=== PATIENT | female | born 1960 | race African-American/Black ===

== ENCOUNTER → 2016-10-23 09:32 | Outpatient (CLI) | payer MEDICARE ==
[2014-07-09 17:20] VITALS: BMI 38.6
[~2016-10-23 09:32] MED LIST: AMITRIPTYLINE150 MG PO; CATAPRES0.1 MG PO; COLACE100 MG PO; DICLOFENAC SODI50 MG PO; HYDROCODON-ACE1 EAC7 PO; HYDROCODONE-APA1 TAB PO; LAMICTAL150 MG PO; MAXZIDE-25 MG T1 TAB PO; MS CONTIN15 MG PO; NEURONTIN 300300 MG PO; PRILOSEC20 MG PO; PRISTIQ100 MG PO; SENNA8.6 MG PO; TRAZODONE HCL150 MG PO; ULTRAM50 MG PO
== END | disposition home or self-care (01) ==
LOC: D.CT 09:32
DX: Z91.81 History of falling (principal)

== ENCOUNTER → 2017-01-14 09:02 | Outpatient (CLI) | payer MEDICARE ==
[2014-07-09 17:20] VITALS: BMI 38.6
== END | disposition home or self-care (01) ==
LOC: D.US 09:02
DX: R22.1 Localized swelling, mass and lump, neck (principal)

== ENCOUNTER 2017-05-11 18:42 | Inpatient (IN) | payer MEDICARE ==
[~2017-05-11] VITALS: Ht 165.1 cm; Wt 100.0 kg
[2017-05-11 19:09] LABS: APPEARANCE CLEAR (CLEAR); BILIRUBIN NEGATIVE (NEGATIVE); COLOR YELLOW (YELLOW); GLUCOSE NEGATIVE (NEGATIVE); KETONE NEGATIVE (NEGATIVE); NITRITE NEGATIVE (NEGATIVE); PROTEIN NEGATIVE (NEGATIVE); UROBILINOGEN NORMAL (NORMAL)
[2017-05-11 19:12] LABS: BACTERIA FEW /hpf (NONE SEEN); EPITHELIAL CELLS 0-5 /hpf (0-5); RED CELLS - URINE 0-5 /hpf (0-5)
[2017-05-11 19:47] LABS: BASOPHILS 0.1 % (0-2); EOSINOPHILS 0.3 % (0-7); HEMATOCRIT 37.7 % (36.0-48.0); HEMOGLOBIN 12.3 g/dL (12-16); IMMATURE GRANULOCYTES 0.3 % (0-5); LYMPHOCYTES 26.6 % (15-50); MCH 28.4 pg (26.0-34.0); MCHC 32.6 g/dL (31.0-37.0); MCV 87.1 fL (80.0-100.0); MEAN PLATELET VOLUME 9.9 fL (7.4-10.4); MONOCYTES 7.6 % (2-11); NEUTROPHILS 65.1 % (40-80); PLATELET COUNT 235 10x3/uL (130-400); RBC 4.33 10x6/uL (4.00-5.40); RDW 14.9 % (11.5-14.5); WBC 11.6 10x3/uL (4.8-10.8)
[2017-05-11 20:22] LABS: ALBUMIN 3.7 g/dL (3.4-5.0); ANION GAP 8.2 mmol/L (8-16); BILIRUBIN - TOTAL 0.34 mg/dL (0.2-1.3); CALCIUM 9.8 mg/dL (8.5-10.1); CARBON DIOXIDE 30.4 mmol/L (21.0-32.0); POTASSIUM - SERUM 3.6 mmol/L (3.5-5.1); PROTEIN - SERUM 7.3 g/dL (6.4-8.2)
[2017-05-11 21:11] LABS: INR 0.96 (0.85-1.17); PROTIME 12.4 SECONDS (11.6-15.0)
[2017-05-11] MEDS ORDERED: INDERAL10 MG PO (22:16)
[2017-05-11] MEDS ORDERED: XALATAN 0.0052.5 ML EACH EYE (22:17)
[2017-05-11] MEDS ORDERED: MELOXICAM PO (22:18)
[2017-05-11] MEDS ORDERED: LEXAPRO10 MG PO (22:20)
[2017-05-11] MEDS ORDERED: ASPIRIN81 MG PO (22:21)
[2017-05-11] MEDS ORDERED: PROTONIX40 MG PO (22:22)
[2017-05-11 22:58] VITALS: BP 149/71
[2017-05-12 01:21] VITALS: BP 149/71
[2017-05-12 05:44] VITALS: BP 154/54
[2017-05-12 05:47] VITALS: BP 149/71; BMI 36.6
[2017-05-12 08:32] VITALS: BP 109/54
[2017-05-12 09:08] VITALS: Ht 165.1 cm; Wt 100.0 kg
[2017-05-12 15:47] LABS: CALCIUM 8.4 mg/dL (8.5-10.1); CARBON DIOXIDE 27.2 mmol/L (21.0-32.0); CHLORIDE - SERUM 103 mmol/L (98-107); GLUCOSE 86 mg/dL (74-106); SODIUM 139 mmol/L (136-145)
[2017-05-12 15:48] LABS: CALC OSMOLALITY 275 mosm/kg (275-300); CREATININE - SERUM 0.7 mg/dL (0.6-1.3); POTASSIUM - SERUM 4.2 mmol/L (3.5-5.1); UREA NITROGEN 10 mg/dL (7-18); eGFR NON AFRICAN AMERICAN > 90 mL/min (90-120)
[2017-05-12 23:07] VITALS: BP 108/83
[2017-05-13 05:06] VITALS: BP 140/63
[2017-05-13 05:25] LABS: BASOPHILS 0.2 % (0-2); EOSINOPHILS 0.4 % (0-7); HEMATOCRIT 41.6 % (36.0-48.0); HEMOGLOBIN 13.4 g/dL (12-16); IMMATURE GRANULOCYTES 0.5 % (0-5); LYMPHOCYTES 8.3 % (15-50); MCH 28.5 pg (26.0-34.0); MCHC 32.2 g/dL (31.0-37.0); MCV 88.5 fL (80.0-100.0); MEAN PLATELET VOLUME 10.7 fL (7.4-10.4); MONOCYTES 5.1 % (2-11); NEUTROPHILS 85.5 % (40-80); PLATELET COUNT 230 10x3/uL (130-400); RDW 15.3 % (11.5-14.5)
[2017-05-13 05:41] LABS: ANION GAP 17.9 mmol/L (8-16); CALCIUM 8.7 mg/dL (8.5-10.1); CARBON DIOXIDE 24.6 mmol/L (21.0-32.0); POTASSIUM - SERUM 4.5 mmol/L (3.5-5.1)
[2017-05-13 08:11] VITALS: BP 107/57
[2017-05-13] MEDS ORDERED: LEVAQUIN500 MG PO (10:27)
[2017-05-13] MEDS ORDERED: HYDROCODON-ACE1 EAC7 PO (10:28)
[2017-05-13 12:21] VITALS: BP 117/63
[2017-05-23 16:14] LABS: AEROBE ID Final report (()); RESULT 1 Aeromonas veronii (())
== END 2017-05-13 14:15 | disposition home or self-care (01) | DRG 340 ==
LOC: D.ER 18:42 → D.EDHOLD 20:54 → D.MS 20:54
PROVIDERS: Emergency Medicine; Family Medicine; Surgery
PROC: 0DTJ4ZZ Resection of Appendix, Percutaneous Endoscopic Approach (ICD-10-PCS; principal; 2017-05-12 09:00)
DX: K35.3 Acute appendicitis with localized peritonitis (principal); I10 Essential (primary) hypertension

== ENCOUNTER → 2017-05-23 12:48 | Outpatient (CLI) | payer MEDICARE ==
[2017-05-12 09:08] VITALS: BMI 38.6
[~2017-05-23 12:48] MED LIST changes: +ASPIRIN81 MG PO; +BACTRIM DS TABL1 TAB PO; +INDERAL10 MG PO; +LEVAQUIN500 MG PO; +LEXAPRO10 MG PO; +MELOXICAM PO; +PROTONIX40 MG PO; +XALATAN 0.0052.5 ML EACH EYE; +ZOFRAN ODT4 MG/UDTAB PO
== END | disposition home or self-care (01) ==
LOC: D.LABREF 12:48
DX: L02.211 Cutaneous abscess of abdominal wall (principal)

== ENCOUNTER 2017-06-01 19:38 | Inpatient (IN) | payer MEDICARE ==
[~2017-06-01] VITALS: Ht 165.1 cm; Wt 91.6 kg
--- NOTE | ~2017-06-01 | OP ---
PATIENT NAME: MIKE LUGO MEDICAL RECORD: [id number] :64 LOCATION:D.[id number] ADMISSION DATE:06/01/17 SURGEON: BERNADETTE JEFF MD DATE OF OPERATION: 06/03/2017 SURGEON: Bernadette Jeff MD PREOPERATIVE DIAGNOSES: 1. Intraabdominal abscess. 2. Small bowel perforation. POSTOPERATIVE DIAGNOSES: 1. Intraabdominal abscess. 2. Small bowel perforation. PROCEDURE PERFORMED: 1. Diagnostic laparoscopy, laparoscopic drainage of intra-abdominal abscess. 2. Exploratory laparotomy. 3. Small bowel resection. ANESTHESIA: General. COMPLICATIONS: None. SPECIMENS: Small bowel resection. Case was grossly contaminated. ESTIMATED BLOOD LOSS: 100 cc. OPERATIVE COURSE: After consent was obtained, the patient was taken to the operating room and placed in the supine position on the operating table. Next, general anesthesia was given via endotracheal intubation after a timeout was performed to confirm the correct patient and procedure. The abdomen was then prepped and draped in typical sterile fashion. Local anesthetic was injected just above the umbilicus. A stab incision was made with 11-blade scalpel. Using a 5-mm bladeless optical trocar, the abdomen was entered under direct laparoscopic vision. Adequate pneumoperitoneum was achieved. The abdominal cavity was inspected. No evidence of bowel injury. No evidence of bleeding. There were filmy adhesions noted throughout the abdominal wall. A second 5-mm trocar placed in left lateral quadrant. Laparoscopic lysis of adhesions was performed with Metzenbaum scissor dissection until the abdominal wall was clear of adhesions. A third 5-mm trocar was then placed in the suprapubic position. There was an abscess noted at the vaginal cuff at the rectosigmoid junction as well as in the right lower quadrant at the previous appendectomy site. At this time, tedious dissection was done arthroscopically to mobilize the cecum and terminal ileum. There were 2 abscess pockets encountered within the pelvic side wall. Laparoscopic lysis of adhesions was performed to allow for small bowel mobilization. The small bowel was run from the ligament of Treitz to the ileocecal valve. There was a loop of distal terminal ileum that was densely adherent to the pelvic side wall and could not be freed laparoscopically. The abscess cavity along the pelvic side wall was copiously irrigated and suctioned. The small bowel was run a second time from the terminal ileum to ligament of Treitz with no evidence of boundary, no evidence of perforation, no evidence of bleeding. The pelvis was copiously suctioned and irrigated. The abscess cavity OPERATIVE REPORT [id number] MIKE LUGO was opened between the rectosigmoid junction. The vaginal cuff was copiously irrigated and suctioned. At this time, a right lower quadrant incision was made. Skin was incised with a 15 blade scalpel. Dissection continued to the level of the external oblique fascia. The fascia was incised with electrocautery and Marty retractor was placed. The terminal ileum was extracorporealized. The loop of distal ileum that was unable to be mobilized laparoscopically was bluntly dissected of the pelvic side wall. Once that portion of terminal ileum was exposed, there was a perforation within the small bowel noted consistent with the CT findings of contrast extravasation in the right lower quadrant. At this time, a small bowel resection was performed using the NELLA linear cutting staplers with green load staplers. The small bowel resection specimen was sent for permanent pathology. The staple line was imbricated using 3-0 Vicryl suture. The small bowel was placed back into the abdominal cavity. The Marty retractor was tied off. The abdomen was reinsufflated at this time. Again, laparoscopic intra-abdominal lavage was performed with approximately 3 liters of saline. Two TREVON drains were placed. A TREVON drain was placed into the pelvis anterior to the rectosigmoid junction and posterior to the vagina. A second drain was placed along the right pericolic gutter. The drain tubes were brought out through the 5-mm trocar site. They were secured with 2-0 nylon suture. The Marty retractor was then removed. The fascia was closed with #1 looped PDS. The subcutaneous tissue was copiously irrigated and suctioned. The skin was loosely reapproximated using manuel. At the end of the case, all needle and counts were correct. No complications occurred. The patient was extubated and transferred to the PACU in stable condition. TRANSINT:[id number] Voice Confirmation ID: [id number] DOCUMENT ID: [id number] BERNADETTE JEFF MD at 1506 CC: [id number] DICTATION DATE: 06/03/17 1348 OUTSOLE TACKER: 06/03/17 1446 ADM IN [facility] [address] [place] [address]
[~2017-06-01 19:38] MED LIST changes: -BACTRIM DS TABL1 TAB PO; -ZOFRAN ODT4 MG/UDTAB PO
[2017-06-01 21:33] LABS: BASOPHILS 0.1 % (0-2); EOSINOPHILS 0.5 % (0-7); HEMOGLOBIN 9.7 g/dL (12-16); IMMATURE GRANULOCYTES 1.8 % (0-5); LYMPHOCYTES 18.7 % (15-50); MCH 27.5 pg (26.0-34.0); MCHC 32.3 g/dL (31.0-37.0); MONOCYTES 8.8 % (2-11); NEUTROPHILS 70.1 % (40-80); PLATELET COUNT 268 10x3/uL (130-400); RBC 3.53 10x6/uL (4.00-5.40); RDW 16.2 % (11.5-14.5); WBC 14.8 10x3/uL (4.8-10.8)
[2017-06-01 21:34] LABS: APPEARANCE CLEAR (CLEAR); COLOR YELLOW (YELLOW); NITRITE NEGATIVE (NEGATIVE); SPECIFIC GRAVITY 1.015 (1.005-1.020)
[2017-06-01 21:35] LABS: BILIRUBIN NEGATIVE (NEGATIVE); GLUCOSE NEGATIVE (NEGATIVE); KETONE NEGATIVE (NEGATIVE); PROTEIN NEGATIVE (NEGATIVE); UROBILINOGEN NORMAL (NORMAL)
[2017-06-01 21:56] LABS: ALBUMIN 2.6 g/dL (3.4-5.0); ANION GAP 15.5 mmol/L (8-16); BILIRUBIN - TOTAL 0.2 mg/dL (0.2-1.3); CALCIUM 9.6 mg/dL (8.5-10.1); CARBON DIOXIDE 25.7 mmol/L (21.0-32.0); CREATININE - SERUM 0.9 mg/dL (0.6-1.3); POTASSIUM - SERUM 5.2 mmol/L (3.5-5.1); PROTEIN - SERUM 6.8 g/dL (6.4-8.2)
[2017-06-02 01:16] VITALS: BP 154/78; BMI 33.6
[2017-06-02 04:00] VITALS: BP 136/76
[2017-06-02 07:07] LABS: BASOPHILS 0.3 % (0-2); EOSINOPHILS 0.7 % (0-7); HEMATOCRIT 28.4 % (36.0-48.0); HEMOGLOBIN 9.1 g/dL (12-16); IMMATURE GRANULOCYTES 1.9 % (0-5); LYMPHOCYTES 24.7 % (15-50); MCV 84.3 fL (80.0-100.0); MEAN PLATELET VOLUME 8.2 fL (7.4-10.4); NEUTROPHILS 64.4 % (40-80); RBC 3.37 10x6/uL (4.00-5.40); RDW 15.8 % (11.5-14.5)
[2017-06-02 07:08] LABS: PLATELET COUNT 508 10x3/uL (130-400); WBC 10.8 10x3/uL (4.8-10.8)
[2017-06-02 07:15] LABS: ANION GAP 13.1 mmol/L (8-16); CALCIUM 8.7 mg/dL (8.5-10.1); CARBON DIOXIDE 27.6 mmol/L (21.0-32.0)
[2017-06-02 07:34] LABS: POTASSIUM - SERUM 3.7 mmol/L (3.5-5.1)
[2017-06-02 07:57] LABS: APTT 28.8 SECONDS (22.8-39.4); INR 1.1 (0.85-1.17); PROTIME 13.8 SECONDS (11.6-15.0)
[2017-06-02 08:37] VITALS: BP 120/59
[2017-06-02 11:39] VITALS: BP 127/50
[2017-06-02 15:40] VITALS: BP 129/66
[2017-06-02 20:41] VITALS: BP 118/50
[2017-06-03 00:45] VITALS: BP 134/76
[2017-06-03 00:50] VITALS: BP 155/78
[2017-06-03 04:30] VITALS: BP 119/64
[2017-06-03 07:44] LABS: BASOPHILS 0.2 % (0-2); EOSINOPHILS 0.8 % (0-7); HEMATOCRIT 30.5 % (36.0-48.0); HEMOGLOBIN 9.7 g/dL (12-16); IMMATURE GRANULOCYTES 2.5 % (0-5); LYMPHOCYTES 22.2 % (15-50); MCH 27.2 pg (26.0-34.0); MCHC 31.8 g/dL (31.0-37.0); MCV 85.4 fL (80.0-100.0); MEAN PLATELET VOLUME 8.3 fL (7.4-10.4); MONOCYTES 7.4 % (2-11); NEUTROPHILS 66.9 % (40-80); PLATELET COUNT 517 10x3/uL (130-400); RBC 3.57 10x6/uL (4.00-5.40); RDW 16.3 % (11.5-14.5); WBC 9.5 10x3/uL (4.8-10.8)
[2017-06-03 07:58] LABS: APTT 28.1 SECONDS (22.8-39.4); INR 1.19 (0.85-1.17); PROTIME 14.6 SECONDS (11.6-15.0)
[2017-06-03 07:59] LABS: ALBUMIN 2.1 g/dL (3.4-5.0); ANION GAP 12.4 mmol/L (8-16); BILIRUBIN - TOTAL 0.1 mg/dL (0.2-1.3); CALCIUM 8.6 mg/dL (8.5-10.1); CARBON DIOXIDE 27.2 mmol/L (21.0-32.0); CREATININE - SERUM 0.9 mg/dL (0.6-1.3); MAGNESIUM - SERUM 2.1 mg/dL (1.8-2.4); PHOSPHOROUS 3.7 mg/dL (2.5-4.9); POTASSIUM - SERUM 3.6 mmol/L (3.5-5.1); PROTEIN - SERUM 6.5 g/dL (6.4-8.2)
[2017-06-03 08:38] VITALS: BP 134/86
[2017-06-03 14:42] VITALS: Ht 165.1 cm; Wt 91.6 kg
[2017-06-03 15:05] VITALS: BP 122/63
[2017-06-03 21:29] VITALS: BP 144/61
[2017-06-04 00:44] VITALS: BP 151/66
[2017-06-04 04:00] VITALS: BP 109/58
[2017-06-04 04:35] LABS: BASOPHILS 0.1 % (0-2); EOSINOPHILS 0.1 % (0-7); HEMATOCRIT 33.2 % (36.0-48.0); HEMOGLOBIN 10.4 g/dL (12-16); LYMPHOCYTES 8.8 % (15-50); MCH 26.9 pg (26.0-34.0); MCHC 31.3 g/dL (31.0-37.0); MCV 85.8 fL (80.0-100.0); MEAN PLATELET VOLUME 8.7 fL (7.4-10.4); MONOCYTES 5.1 % (2-11); NEUTROPHILS 84.9 % (40-80); PLATELET COUNT 510 10x3/uL (130-400); RBC 3.87 10x6/uL (4.00-5.40); RDW 16.5 % (11.5-14.5)
[2017-06-04 04:38] LABS: WBC 18.6 10x3/uL (4.8-10.8)
[2017-06-04 04:52] LABS: CALC OSMOLALITY 288 mosm/kg (275-300); CALCIUM 8.2 mg/dL (8.5-10.1); CARBON DIOXIDE 26.8 mmol/L (21.0-32.0); CHLORIDE - SERUM 109 mmol/L (98-107); CREATININE - SERUM 0.8 mg/dL (0.6-1.3); GLUCOSE 130 mg/dL (74-106); MAGNESIUM - SERUM 1.9 mg/dL (1.8-2.4); POTASSIUM - SERUM 3.5 mmol/L (3.5-5.1); SODIUM 145 mmol/L (136-145); UREA NITROGEN 8 mg/dL (7-18); eGFR NON AFRICAN AMERICAN 79 mL/min (90-120)
[2017-06-04 08:46] VITALS: BP 144/68
[2017-06-04 12:05] VITALS: BP 134/71
[2017-06-04 16:52] VITALS: BP 121/64
[2017-06-04 22:21] VITALS: BP 124/65
[2017-06-05 01:10] VITALS: BP 124/78
[2017-06-05 07:52] VITALS: BP 118/58
[2017-06-05 08:23] LABS: BASOPHILS 0.1 % (0-2); EOSINOPHILS 0.6 % (0-7); HEMATOCRIT 30.5 % (36.0-48.0); HEMOGLOBIN 9.2 g/dL (12-16); IMMATURE GRANULOCYTES 1.1 % (0-5); LYMPHOCYTES 10.1 % (15-50); MCH 26.8 pg (26.0-34.0); MCHC 30.2 g/dL (31.0-37.0); MEAN PLATELET VOLUME 8.8 fL (7.4-10.4); MONOCYTES 6.1 % (2-11); PLATELET COUNT 541 10x3/uL (130-400); RBC 3.43 10x6/uL (4.00-5.40); RDW 17.1 % (11.5-14.5); WBC 18.6 10x3/uL (4.8-10.8)
[2017-06-05 08:31] LABS: ANION GAP 11.5 mmol/L (8-16); CALCIUM 8.5 mg/dL (8.5-10.1); CARBON DIOXIDE 27.7 mmol/L (21.0-32.0); POTASSIUM - SERUM 3.2 mmol/L (3.5-5.1)
[2017-06-05 08:37] LABS: MCV 88.9 fL (80.0-100.0)
[2017-06-05 12:20] VITALS: BP 142/59
[2017-06-05 15:54] VITALS: BP 140/52
[2017-06-06 05:40] LABS: BASOPHILS 0.1 % (0-2); EOSINOPHILS 1.6 % (0-7); HEMATOCRIT 27.5 % (36.0-48.0); HEMOGLOBIN 8.4 g/dL (12-16); IMMATURE GRANULOCYTES 0.8 % (0-5); LYMPHOCYTES 12.8 % (15-50); MCH 26.8 pg (26.0-34.0); MCHC 30.5 g/dL (31.0-37.0); MCV 87.6 fL (80.0-100.0); MEAN PLATELET VOLUME 8.8 fL (7.4-10.4); MONOCYTES 5.9 % (2-11); NEUTROPHILS 78.8 % (40-80); PLATELET COUNT 477 10x3/uL (130-400); RBC 3.14 10x6/uL (4.00-5.40); RDW 17.1 % (11.5-14.5); WBC 15.9 10x3/uL (4.8-10.8)
[2017-06-06 05:59] LABS: CALC OSMOLALITY 290 mosm/kg (275-300); CALCIUM 8.4 mg/dL (8.5-10.1); CARBON DIOXIDE 24.7 mmol/L (21.0-32.0); CHLORIDE - SERUM 111 mmol/L (98-107); CREATININE - SERUM 0.8 mg/dL (0.6-1.3); GLUCOSE 83 mg/dL (74-106); MAGNESIUM - SERUM 1.7 mg/dL (1.8-2.4); POTASSIUM - SERUM 3.1 mmol/L (3.5-5.1); SODIUM 148 mmol/L (136-145); UREA NITROGEN 8 mg/dL (7-18); eGFR NON AFRICAN AMERICAN 79 mL/min (90-120)
[2017-06-06 06:20] VITALS: BP 148/68
[2017-06-06 08:10] VITALS: BP 116/49
[2017-06-06 12:49] VITALS: BP 145/57
[2017-06-06 15:55] VITALS: BP 133/63
[2017-06-06 20:46] VITALS: BP 180/53
[2017-06-07 01:30] VITALS: BP 160/77
[2017-06-07 04:49] VITALS: BP 130/56
[2017-06-07 06:25] LABS: BASOPHILS 0.1 % (0-2); EOSINOPHILS 2.6 % (0-7); HEMATOCRIT 28.2 % (36.0-48.0); HEMOGLOBIN 8.8 g/dL (12-16); IMMATURE GRANULOCYTES 0.9 % (0-5); LYMPHOCYTES 21.1 % (15-50); MCH 26.4 pg (26.0-34.0); MCHC 31.2 g/dL (31.0-37.0); MEAN PLATELET VOLUME 8.7 fL (7.4-10.4); MONOCYTES 5.8 % (2-11); NEUTROPHILS 69.5 % (40-80); PLATELET COUNT 533 10x3/uL (130-400); RBC 3.33 10x6/uL (4.00-5.40); RDW 16.8 % (11.5-14.5)
[2017-06-07 06:26] LABS: MCV 84.7 fL (80.0-100.0); WBC 11.3 10x3/uL (4.8-10.8)
[2017-06-07 06:35] LABS: CALC OSMOLALITY 286 mosm/kg (275-300); CARBON DIOXIDE 27.8 mmol/L (21.0-32.0); CHLORIDE - SERUM 106 mmol/L (98-107); CREATININE - SERUM 0.7 mg/dL (0.6-1.3); GLUCOSE 103 mg/dL (74-106); POTASSIUM - SERUM 3.3 mmol/L (3.5-5.1); SODIUM 145 mmol/L (136-145); UREA NITROGEN 7 mg/dL (7-18); eGFR NON AFRICAN AMERICAN > 90 mL/min (90-120)
[2017-06-07 08:25] VITALS: BP 124/60
[2017-06-07 12:38] VITALS: BP 144/61
[2017-06-07 20:16] VITALS: BP 140/81
[2017-06-07 23:49] VITALS: BP 108/51
[2017-06-08 04:20] VITALS: BP 139/86
[2017-06-08] MEDS ORDERED: LEVAQUIN500 MG PO (06:16)
[2017-06-08] MEDS ORDERED: HYDROCODONE-APA1 TAB PO (06:18)
[2017-06-08] MEDS ORDERED: ZOFRAN ODT4 MG/UDTAB PO (06:22)
[2017-06-08 08:00] VITALS: BP 143/69
[2017-06-08 11:59] VITALS: BP 138/71
[2017-06-08 14:48] LABS: BASOPHILS 0.3 % (0-2); IMMATURE GRANULOCYTES 1.6 % (0-5); MCH 26.8 pg (26.0-34.0); MCHC 32.1 g/dL (31.0-37.0); MCV 83.3 fL (80.0-100.0); MEAN PLATELET VOLUME 9.2 fL (7.4-10.4); MONOCYTES 7.6 % (2-11); NEUTROPHILS 66.5 % (40-80); RBC 3.36 10x6/uL (4.00-5.40); RDW 16.6 % (11.5-14.5); WBC 10.7 10x3/uL (4.8-10.8)
[2017-06-08 14:51] LABS: PLATELET COUNT 401 10x3/uL (130-400)
[2017-06-08 15:05] LABS: CALC OSMOLALITY 282 mosm/kg (275-300); CALCIUM 8.3 mg/dL (8.5-10.1); CARBON DIOXIDE 28.4 mmol/L (21.0-32.0); CHLORIDE - SERUM 105 mmol/L (98-107); CREATININE - SERUM 0.7 mg/dL (0.6-1.3); GLUCOSE 102 mg/dL (74-106); POTASSIUM - SERUM 3.7 mmol/L (3.5-5.1); SODIUM 143 mmol/L (136-145); UREA NITROGEN 6 mg/dL (7-18); eGFR NON AFRICAN AMERICAN > 90 mL/min (90-120)
[2017-06-08 16:03] LABS: MAGNESIUM - SERUM 2.6 mg/dL (1.8-2.4)
[2017-06-08 16:16] VITALS: BP 144/53
[2017-06-08 18:07] LABS: AEROBE ID Final report (())
[2017-06-08 20:00] VITALS: BP 138/68
[2017-06-09] VITALS: BP 120/51
[2017-06-09 04:00] VITALS: BP 130/59
[2017-06-09 08:16] VITALS: BP 146/73
[2017-06-09] MEDS ORDERED: BACTRIM DS TABL1 TAB PO (10:21)
[2017-06-09 11:47] VITALS: BP 132/61
== END 2017-06-09 15:01 | disposition home or self-care (01) | DRG 856 ==
LOC: D.ER 19:38 → D.EDHOLD 23:47 → D.MS 23:47
PROVIDERS: Emergency Medicine; Nurse Practitioner Family; Surgery
PROC: 0DBB4ZZ Excision of Ileum, Percutaneous Endoscopic Approach (ICD-10-PCS; principal; 2017-06-03 09:30)
DX: T81.4XXA Infection following a procedure, initial encounter (principal); K65.1 Peritoneal abscess; K63.2 Fistula of intestine; N89.8 Other specified noninflammatory disorders of vagina; F31.9 Bipolar disorder, unspecified

== ENCOUNTER → 2017-06-13 16:42 | Outpatient (CLI) | payer MEDICARE ==
[2017-06-03 14:42] VITALS: BMI 33.6
[~2017-06-13 16:42] MED LIST changes: +BACTRIM DS TABL1 TAB PO; +ZOFRAN ODT4 MG/UDTAB PO
== END | disposition home or self-care (01) ==
LOC: D.RAD 16:30
DX: R10.9 Unspecified abdominal pain (principal); R19.4 Change in bowel habit

== ENCOUNTER 2018-05-01 09:40 | Day surgery (SDC) | payer MEDICARE ==
[2018-04-30 09:26] LABS: ANION GAP 9.8 mmol/L (8-16); CARBON DIOXIDE 31.8 mmol/L (21.0-32.0); CREATININE - SERUM 0.9 mg/dL (0.6-1.3); POTASSIUM - SERUM 3.6 mmol/L (3.5-5.1)
[2018-04-30 09:32] LABS: HEMATOCRIT 43.1 % (36.0-48.0); HEMOGLOBIN 14.4 g/dL (12-16); MCH 31.4 pg (26.0-34.0); MCHC 33.4 g/dL (31.0-37.0); MCV 93.9 fL (80.0-100.0); MEAN PLATELET VOLUME 9.7 fL (7.4-10.4); RBC 4.59 10x6/uL (4.00-5.40); RDW 15.3 % (11.5-14.5); WBC 8.5 10x3/uL (4.8-10.8)
[~2018-05-01] VITALS: Ht 165.1 cm; Wt 95.5 kg
--- NOTE | ~2018-05-01 | OP ---
PATIENT NAME: MIKE LUGO MEDICAL RECORD: [id number] :64 LOCATION:D[facility] ADMISSION DATE: SURGEON: ADOLFO ISSA DATE OF OPERATION: 05/01/2018 SURGEON: Adolfo Issa DPM PREOPERATIVE DIAGNOSIS: Hallux abductovalgus, left foot. POSTOPERATIVE DIAGNOSIS: Hallux abductovalgus, left foot. PROCEDURE: Alejandro bunionectomy, left foot. ANESTHESIA: Local with monitored anesthesia care. HEMOSTASIS: Pneumatic ankle tourniquet inflated to 250 mmHg. ESTIMATED BLOOD LOSS: Minimal. MATERIALS: One 2.5 mm [employer] headless Dart-Fire screw. INJECTABLES: 20 cc of 0.25% Marcaine plain. The patient has longstanding history of pain associated with left foot bunion. She has tried wider shoes to no avail. We discussed the proposed procedure, risks and benefits were reviewed. Complications were discussed. All questions were answered. She was appropriately consented for the above-mentioned procedure. The patient was brought in the operating room and placed on the operating table in supine position. A timeout was called with Dr. Issa, who identified the patient, the surgical site, and the surgery to be performed. Once appropriate anesthesia was obtained, the foot was prepped and draped in the usual aseptic manner. The pneumatic ankle tourniquet was inflated to 250 mmHg around the well-padded left ankle. Attention was directed to the dorsal aspect of the first metatarsophalangeal joint where a 6 cm curvilinear incision was made just medial to the extensor hallucis longus tendon. This incision was carried deep to soft tissue with care being taken to retract all vital neurovascular structures. All bleeders were cauterized along the way. Through this incision, the first intermetatarsal space was entered utilizing both sharp and blunt dissection, the conjoined tendon of the adductor hallucis muscle was noted at the base of the proximal phalanx and it was sharply transected at this level. Attention was then directed further proximally to the level of the fibular sesamoidal ligament. This too was sharply transected. Attention was then redirected to the dorsal aspect of the first metatarsophalangeal joint where the periosteum was reflected from the head of the first metatarsal and the base of the proximal phalanx, thus exposing the first metatarsophalangeal joint. The head of the first metatarsal was noted to be hypertrophied. Utilizing a sagittal saw, the hypertrophied medial eminence was removed. Next, a V-shaped osteotomy was created in the head of the first metatarsal. This was a through and through osteotomy with the apex oriented distally. The capital fragment was shifted laterally and impacted upon OPERATIVE REPORT [id number] MIKE LUGO the first metatarsal shaft. Next, utilizing manufacture's recommended technique, one 2.5-mm screw was placed across the osteotomy. Excellent compression was noted with use of the screw. All remaining over hanging bone from the medial aspect of the first metatarsal shaft was resected with the sagittal saw. All remaining bone edges were smoothed with a rasp. The surgical site was then irrigated with copious amounts of normal sterile saline via bulb syringe. The periosteum was reapproximated and coapted using 3-0 Vicryl. The subQ was reapproximated and coapted using 3-0 Vicryl. The skin was reapproximated and coapted using 4-0 nylon. A dressing consisting of Xeroform, 4 x 4's, Kerlix, and a Coban was applied to the left foot. The pneumatic ankle tourniquet was deflated and cap refill time is immediate to all digits of the left foot. The patient tolerated the procedure and anesthesia well. She left the operating with vital signs stable and capillary refill time intact. The patient was discharged home with instructions to ice and elevate the left foot. She was dispensed a postop shoe and she also has a boot to further offload the foot. She was dispensed my cell phone number for any afterhours difficulties. She was offered also provided with prescriptions for [place] 5.0/325 and ibuprofen 800 mg. There were no complications with this procedure. We will follow up with her in the office next week. TRANSINT:[id number] Voice Confirmation ID: [id number] DOCUMENT ID: [id number] ADOLFO ISSA CC: [id number] DICTATION DATE: 05/01/18 1418 CORRECTIONS SERGEANT: 05/01/18 1846 [facility] 05/01/18 [id number] [place] [address]
[~2018-05-01 09:40] MED LIST changes: +RESTORIL15 MG PO
[2018-05-01 11:11] VITALS: Ht 165.1 cm; Wt 95.5 kg
== END 2018-05-01 15:25 | disposition home or self-care (01) ==
LOC: D.OPS 09:40 → D.PAN 12:00 → D.OPS 12:00
PROVIDERS: Anesthesiology; ATTEND Podiatrist
DX: M20.12 Hallux valgus (acquired), left foot (principal); Z01.812 Encounter for preprocedural laboratory examination

== ENCOUNTER 2018-09-26 08:00 | Outpatient (CLI) | payer MEDICARE ==
[2018-05-01 11:11] VITALS: BMI 35.0
== END 2018-09-26 23:59 | disposition home or self-care (01) ==
LOC: D.MAMMO 08:00
PROVIDERS: ATTEND Family Medicine
DX: Z12.31 Encounter for screening mammogram for malignant neoplasm of breast (principal)

== ENCOUNTER → 2018-10-21 08:00 | Outpatient (CLI) | payer MEDICARE ==
[2018-05-01 11:11] VITALS: BMI 35.0
[~2018-10-21 08:00] MED LIST changes: +ATARAX 25 MG TA25 MG PO; +KLONOPIN0.5 MG PO
== END | disposition home or self-care (01) ==
LOC: D.MAMMO 08:00
PROVIDERS: ATTEND Family Medicine
DX: R92.8 Other abnormal and inconclusive findings on diagnostic imaging of breast (principal)

== ENCOUNTER 2018-11-21 09:40 | Day surgery (SDC) | payer MEDICARE ==
[2018-11-20 10:21] LABS: HEMATOCRIT 42.6 % (36.0-48.0); HEMOGLOBIN 14.6 g/dL (12-16); MCH 30.4 pg (26.0-34.0); MCHC 34.3 g/dL (31.0-37.0); MCV 88.8 fL (80.0-100.0); MEAN PLATELET VOLUME 9.8 fL (7.4-10.4); RBC 4.8 10x6/uL (4.00-5.40); RDW 14.2 % (11.5-14.5); WBC 8.1 10x3/uL (4.8-10.8)
[2018-11-20 11:02] LABS: CALC OSMOLALITY 287 mosm/kg (275-300); CALCIUM 9.6 mg/dL (8.5-10.1); CARBON DIOXIDE 33.3 mmol/L (21.0-32.0); CHLORIDE - SERUM 104 mmol/L (98-107); CREATININE - SERUM 0.8 mg/dL (0.6-1.3); POTASSIUM - SERUM 3.7 mmol/L (3.5-5.1); SODIUM 143 mmol/L (136-145); UREA NITROGEN 22 mg/dL (7-18); eGFR NON AFRICAN AMERICAN 78 mL/min (90-120)
[2018-11-20 11:05] LABS: GLUCOSE 98 mg/dL (74-106)
[~2018-11-21] VITALS: Ht 165.1 cm; Wt 102.1 kg
[2018-11-21 10:40] VITALS: BP 122/79; Ht 165.1 cm; Wt 102.1 kg
--- NOTE | 2018-11-21 15:20 | NUR ---
1340-REC'D FROM RR. AWAKE AND ALERT WITHOUT COMPLAINTS. TOLERATING ICE WATER. COFFEE TO RM PER REQUEST. VSS.
--- NOTE | 2018-11-21 15:21 | NUR ---
1440-DISCHARGE CRITERIA MET. IV REMOVED FROM LEFT HAND WITH CATH INTACT. DISPOSED INTO SHARPS,COVERED SITE WITH BANDAID. VSS.REVIEWED POST OPERATIVE INSTRUCTIONS WITH PT. VERBALIZED UNDERSTANDING WITHOUT QUESTIONS OR CONCERNS. ESCORTED OUT VIA W/C WITH SISITER AWAITING TO DRIVE HOME
--- NOTE | 2018-11-21 15:21 | NUR ---
1355-FULL LIQUID TRAY TO RM.
--- NOTE | 2018-12-01 14:32 | OP ---
PATIENT NAME: MIKE LUGO MEDICAL RECORD: [id number] :64 LOCATION:D.[facility] ADMISSION DATE: SURGEON: JEANNETTE ISSA DATE OF OPERATION: 11/21/2018 SURGEON: Jeannette Issa DPM PREOPERATIVE DIAGNOSIS: Painful internal fixation, left foot. POSTOPERATIVE DIAGNOSIS: Painful internal fixation, left foot. PROCEDURE: Removal of painful internal fixation, left foot. ANESTHESIA: Local with monitored anesthesia care. HEMOSTASIS: Pneumatic ankle tourniquet inflated to 250 mmHg. ESTIMATED BLOOD LOSS: Minimal. MATERIALS: 3-0 Vicryl, 4-0 nylon. INJECTABLES: 12 cc of 0.5% bupivacaine plain. The patient has a history of pain associated with a screw in the first metatarsal head. It has become prominent and rubs in shoes. She has had pain with the area. We have discussed the proposed procedure, risks and benefits were reviewed. Complications discussed. She was appropriately consented for the above-mentioned procedure. DESCRIPTION OF PROCEDURE: The patient was brought in the operating room and placed on the operating table in supine position. A timeout was called with Dr. Issa, who identified the patient, the surgical site, and surgery to be performed. Once appropriate anesthesia was obtained, the foot was prepped and draped in the usual aseptic manner. The pneumatic ankle tourniquet was inflated to 250 mmHg on the well-padded left ankle. Attention was directed to the dorsal aspect of the left foot where a 6-cm incision was made just medial to the extensor hallucis longus tendon. This incision was carried deep to soft tissue with care being taken to retract all vital neurovascular structures. All bleeders were cauterized along the way. The periosteum was then reflected from the head of first metatarsal and the base of the proximal phalanx, thus exposing the joint itself and also the prominent screw. Utilizing the manufacture's screwdriver, the screw was removed in toto. Next, utilizing a sagittal saw, the head of the first metatarsal was remodeled. All sharp bone edges were smoothed with a rasp. The surgical site was then irrigated with copious amounts of normal sterile saline via bulb syringe. The periosteum was reapproximated and coapted using 3-0 Vicryl. The subQ was reapproximated and coapted using 4-0 Vicryl and the skin was reapproximated and closed using 4-0 nylon. A dressing consisting of Xeroform, 4 x 4's, Kerlix, and Ravi bandage was applied to the left foot. The pneumatic ankle tourniquet was deflated and cap refill time is immediate to all digits of the left foot. OPERATIVE REPORT [id number] MIKE LUGOE The patient tolerated the procedure and anesthesia well. She left the operating room with vital signs stable and capillary refill time intact. The patient was discharged home with instructions to ice and elevate left foot. She has a postop shoe to help offload the surgical area. She has my cell phone number for any after hour difficulties and there were no complications with this procedure. TRANSINT:[id number] Voice Confirmation ID: [id number] DOCUMENT ID: [id number] JEANNETTE ISSA at 1432 CC: [id number] DICTATION DATE: 11/21/18 1329 GROUP SALES REPRESENTATIVE: 11/22/18 0045 [facility] 11/21/[address] [address]
== END 2018-11-21 14:40 | disposition home or self-care (01) ==
LOC: D.OPS 09:40 → D.PAN 12:00 → D.OPS 12:00
PROVIDERS: Anesthesiology; ATTEND Podiatrist
DX: T84.84XA Pain due to internal orthopedic prosthetic devices, implants and grafts, initial encounter (principal)